=== PATIENT | male | born 1960 | race American Indian/Alaskan Native ===

== ENCOUNTER 2019-01-20 07:31 | Outpatient (CLI) | payer BC ==
[~2019-01-20 07:31] MED LIST: ALT5C PO; ATOR10TA87 PO; EMPA10TA PO; FENO134C PO; GLIM4TAB4 PO; SITA1TAB6 PO; VITA1TAB20 PO
[2019-01-20 08:37] LABS: BLOOD UREA NITROGEN 23 MG/DL (7-18); CREATININE 0.92 MG/DL (0.60-1.10); eGFR 84 ML/MIN
[2019-01-20] MEDS ORDERED: iohexol 350MG/ML 100ml bottle IV ONE (09:19)
== END 2019-01-20 23:59 | disposition home or self-care (01) ==
LOC: 64 CT 07:31
PROVIDERS: ATTEND Surgery
DX: Z01.818 Encounter for other preprocedural examination (principal); I65.23 Occlusion and stenosis of bilateral carotid arteries; I77.71 Dissection of carotid artery; I10 Essential (primary) hypertension; E11.9 Type 2 diabetes mellitus without complications; E07.9 Disorder of thyroid, unspecified
CPT/HCPCS: 36415; 70498; 82565; 84520; Q9967